=== PATIENT | female | born 1985 | race Asian ===

== ENCOUNTER 2017-02-04 20:13 | Observation (INO) | payer OTHER ==
[~2017-02-04] VITALS: Ht 157.5 cm; Wt 48.1 kg
[2017-02-04 21:28] VITALS: BP 80/50
== END 2017-02-04 21:50 | disposition home or self-care (01) ==
LOC: MLD 20:13
PROVIDERS: ADMIT Obstetrics & Gynecology; ATTEND Obstetrics & Gynecology
DX: O21.9 Vomiting of pregnancy, unspecified (principal); Z3A.00 Weeks of gestation of pregnancy not specified
CPT/HCPCS: G0378